=== PATIENT | male | born 1985 | race Caucasian/White ===

== ENCOUNTER 2017-07-08 12:50 | Emergency (ER) | payer BC ==
[~2017-07-08] VITALS: Ht 185.4 cm; Wt 127.0 kg
[2017-07-08 14:59] VITALS: BP 159/98
== END 2017-07-08 15:01 | disposition home or self-care (01) ==
LOC: ER 12:50
DX: S61.213A Laceration without foreign body of left middle finger without damage to nail, initial encounter (principal); F10.99 Alcohol use, unspecified with unspecified alcohol-induced disorder; W26.8XXA Contact with other sharp object(s), not elsewhere classified, initial encounter; Y93.89 Activity, other specified; Y92.89 Other specified places as the place of occurrence of the external cause; Y99.8 Other external cause status